=== PATIENT | male | born 1995 | race African-American/Black ===

== ENCOUNTER → 2018-08-26 | Outpatient (CLI) | payer OTHER ==
--- NOTE | 2018-08-26 16:00 | RADIOLOGY IMAGING REPORT ---
FACILITY: [facility] [place] PATIENT NAME: Manohar Preciado : 1995 MR: [id number] V: [id number] EXAM DATE: ORDERING PHYSICIAN: WE[employer]HMAN TECHNOLOGIST: Location: [facility] Patient: Manohar Preciado : 1995 Visit/Account:[id number] Date of Sevice: 08/26/2018 MRI left knee without contrast Indication: Knee pain. Basketball injury. Comparison: None available. Technique: Multiplanar, multisequence MRI examination is performed of the left knee without contrast. Findings: Examination of the medial compartment demonstrates a radial tear involving the posterior horn of the medial meniscus near the posterior root. No displaced meniscal fragment. Focal area of chondrosis i nvolves the central weightbearing surface of the medial femoral condyle with subchondral edema and cy st formation. This may be a chronic finding. Examination of the lateral compartment demonstrates a radial tear of the inner margin of the posterio r horn of lateral meniscus. There is a vertical longitudinal component which extends into the circuit rider ior root. This has a morphology of a parrot beak tear. The articular cartilage surfaces are normal. There is a subtle impaction deformity involving the anterior weightbearing surface of the lateral f emoral condyle with an associated bone contusion. Subtle contusion involves the posterior rim of the lateral tibial plateau. Examination of the patellofemoral compartment demonstrates normal patellar and normal trochlear surfa kan. There is a high-grade tear of the anterior cruciate ligament. Ligament appears completely ruptured n ear the femoral attachment site. The PCL is intact. The MCL is intact. The lateral collateral ligament complex is maintained. The extensor mechanism is maintained. There is patella donnie. Edema seen within the superior and lat eral margin of Hoffa's fat pad. This is not specific but can be seen with patellar maltracking and i mpingement. A small joint effusion is seen. IMPRESSION: 1. High-grade tear of the left knee anterior cruciate ligament. Concern is for complete versus near complete rupture at the femoral attachment site. There are associated bone contusions involving the lateral femoral condyle and the posterior rim of the lateral tibial plateau. 2. Radial type tear involving the posterior horn of the medial meniscus near the posterior root. 3. Complex (parrot beak) tear of the posterior horn of the lateral meniscus extending into the circuit rider ior root. 4. Focal area of chondrosis involving the anterior weightbearing surface of the medial femoral condy le with subchondral edema and cyst formation. This may be chronic. 5. Patella donnie with edema in the superior and lateral margin of Hoffa's fat pad. Correlate for pos sible patellar maltracking and fat pad impingement. Report Dictated By: Jose Baker at 08/26/2018 3:42 PM Report E-Signed By: Jose Baker at 08/26/2018 3:54 PM WSN:[email or web address]
== END ==
LOC: MRI 12:33
PROVIDERS: ATTEND Emergency Medicine Sports Medicine
DX: S83.512A Sprain of anterior cruciate ligament of left knee, initial encounter (principal)